=== PATIENT | female | born 1980 ===

== ENCOUNTER 2018-11-17 14:28 | Inpatient (IN) | payer OTHER ==
[~2018-11-17] VITALS: Ht 157.5 cm; Wt 88.9 kg
[2018-11-26] MEDS ORDERED: GAS RELIEF125 MG PO (07:12)
[2018-11-26] MEDS ORDERED: POLY119PG PO (07:12)
[2018-11-26] MEDS ORDERED: IBUPROFEN800 MG PO (07:12)
[2018-11-26] MEDS ORDERED: GABAPENTIN600 MG PO (07:12)
== END 2018-11-26 08:24 | DRG 743 ==
LOC: OB/GYN 11-24 06:00 → O/R 11-24 06:00 → SURH 11-24 09:45 → OB/GYN 11-24 11:06 → SURH 11-24 11:15 → OB/GYN 11-24 13:53
PROVIDERS: ADMIT Obstetrics & Gynecology
PROC: 0UT70ZZ Resection of Bilateral Fallopian Tubes, Open Approach (ICD-10-PCS; 2018-11-24)
PROC: 0UT90ZZ Resection of Uterus, Open Approach (ICD-10-PCS; principal; 2018-11-24 09:45)
DX: D25.1 Intramural leiomyoma of uterus (principal); N73.6 Female pelvic peritoneal adhesions (postinfective); N83.8 Other noninflammatory disorders of ovary, fallopian tube and broad ligament; N72 Inflammatory disease of cervix uteri